=== PATIENT | male | born 1995 | race African-American/Black ===

== ENCOUNTER 2021-11-11 21:30 | Emergency (ER) | payer OTHER ==
[~2021-11-11] VITALS: Ht 188 cm; Wt 102.0 kg
[2021-11-11] MEDS ORDERED: IBUPROFEN 200 MG TABLET. PO ONE (23:45)
[2021-11-11] MEDS ORDERED: PENICILLIN V K 250 MG TABLET. PO ONE (23:45)
[2021-11-11] MEDS ORDERED: HYDROcodone/APAP 5/325MG 1 TAB TABLET PO ONE (23:45)
[2021-11-11] MEDS ORDERED: IBUP-1007 PO (23:47)
[2021-11-11] MEDS ORDERED: PENI500T PO (23:47)
--- NOTE | 2021-11-11 23:47 | PHYS DOC ---
General Adult EDM: Chief Complaint: DENTAL PROBLEM HPI: HPI: Patient is a 26-year-old male who presents to the emergency department complaining of left lower rear molar pain for the past 2 weeks. Patient reported mild pain 2 weeks ago that has progressively become worse rating a 10 out of 10 pain that he describes as throbbing. Patient reports he took 650 mg of Tylenol at 6:00 this evening with minimal relief in pain. Patient reports he has had a feeling in this tooth in the past for similar symptoms however has been greater than 10 years ago. Patient denies taking any other pain medications or trying another pain relief nonpharmacological methods. Patient denies numbness or tingling to his mouth or tongue, denies throat pain, denies recent fever or chills, denies difficulty swallowing, denies headaches, dizziness, visual changes. Denies nausea, vomiting, or diarrhea. Patient denies other physical complaints or physical concerns. Review of Systems: Review of Systems: 14 body systems of review of systems have been reviewed. See HPI for pertinent positives and negative responses, otherwise all other systems are negative, nonpertinent or noncontributory. Constitutional: Negative except as outlined in HPI above. Skin: Negative except as outlined in HPI above. Eyes: Negative except as outlined in HPI above. HENT: Negative except as outlined in HPI above. Respiratory: Negative except as outlined in HPI above. Cardiovascular: Negative except as outlined in HPI above. GI: Negative except as outlined in HPI above. : Negative except as outlined in HPI above. Musculoskeletal: Negative except as outlined in HPI above. Integument: Negative except as outlined in HPI above. Neurologic: Negative except as outlined in HPI above. Endocrine: Negative except as outlined in HPI above. Lymphatic: Negative except as outlined in HPI above. Psychiatric: Negative except as outlined in HPI above. Heart Score: C/O Chest Pain: No Risk Factors: Risk Factors: DM, Current or recent (<one month) smoker, HTN, HLP, family history of CAD, obesity. Risk Scores: Score 0 - 3: 2.5% MACE over next 6 weeks - Discharge Home Score 4 - 6: 20.3% MACE over next 6 weeks - Admit for Clinical Observation Score 7 - 10: 72.7% MACE over next 6 weeks - Early Invasive Strategies Physical Exam: PE: Constitutional: Well developed, well nourished, no acute distress, non-toxic appearance. 26-year-old male holding left jaw area with hand otherwise in no apparent distress. HENT: Normocephalic, atraumatic. Oropharynx moist, pink, no deep tissue infectious process appreciated, patient speaking in normal voice tones, no drooling, no trismus, marked dental caries, tooth #18 with decay, no purulent drainage appreciated, no bleeding. No lymphadenopathy of the head or neck appreciated. Eyes: Conjunctiva normal, no discharge. Neck: Normal range of motion, no stridor. Cardiovascular: No cyanosis appreciated, distal cap refill less than 2 seconds. Lungs & Thorax: Patient is in no respiratory distress, no audible adventitious lung sounds appreciated. Abdomen: Nontender, no abnormalities noted. Skin: Warm, dry, no erythema, no rash. Back: No tenderness, no deformities. Extremities: No tenderness, no cyanosis, no clubbing, ROM intact, no edema. Neurologic: Alert and oriented X 3, normal motor function, normal sensory f unction, no focal deficits noted. Psychologic: Affect normal, judgement normal, mood normal. EKG: EKG: [] Radiology/Procedures: Radiology/Procedures: [] Course & Med Decision Making: Course & Med Decision Making Pertinent Labs and Imaging studies reviewed. (See chart for details) 26-year-old male, vital signs reviewed, presents emergency room concerning dental pain. Physical examination reveals marked dental caries, there is no abscess or drainage appreciated, suspicious for underlying dental infection, discussed with patient need to follow-up with dentist soon, will give list of dentists on discharge instructions we will treat dentalgia with p.o. pain medic ation, Pen-V K regimen, discussed this with patient, patient is amenable to ED discharge planning. Discussed with the patient all findings and diagnostic testing as well as the need to follow-up with their primary care provider for further evaluation and treatment or return to the ED if any new or worsening symptoms. Strict return precautions were also discussed at length, the patient voiced understanding and agreement with the discharge planning. The patient was nontoxic in appearance, in no apparent distress, and hemodynamically stable at the time of disposition. Dragon Disclaimer: Dragon Disclaimer: This electronic medical record was generated, in whole or in part, using a voice recognition dictation system. Departure Departure Impression: Primary Impression: Dentalgia Additional Impressions: Dental infection Dental caries Disposition: HOME / SELF CARE / HOMELESS Condition: GOOD Referrals: NO PCP (PCP) Patient Instructions: Dental Caries, Dental Pain Additional Instructions: You were seen today in the emergency department for dental pain. As we discussed, I am starting you on antibiotic and pain medication, I am providing a list of dentists for you to follow-up with, please choose a dentist and see soon. Please take antibiotics as prescribed. You may use Tylenol or Motrin for ongoing dental discomfort. You may try using warm salt water swish and spits 2-3 times a day to aid in pain control. Return to the emergency department for worsening symptoms or other concerns. Thank you for visiting our Emergency Department. It was a pleasure taking care of you today in the emergency department and we appreciate you trusting us with your care. If any additional problems come up don't hesitate to return to visit us. Please follow up with your primary care provider so they can plan additional care if needed and know about the problem that you had. If symptoms worsen come back to the Emergency Department. Any concerning symptoms that start such as chest pain, shortness of air, weakness or numbness on one side of the body, running high fevers or any other concerning symptoms return to the ER. Scripts Ibuprofen (IBUPROFEN) 600 Mg Tablet 600 MG PO PRN Q6HRS PRN for INFLAMMATION, #30 TAB 0 Refills Prov: BRIAN IBRAHIM BUFFER CHROME 11/11/21 Penicillin V Potassium (PENICILLIN V POTASSIUM) 500 Mg Tablet 1 TAB PO QID for 14 Days, #56 TAB 0 Refills Prov: BRIAN IBRAHIM APRN 11/11/21 BRIAN IBRAHIM APRN Nov 11, 2021 23:47
== END 2021-11-11 23:43 | disposition home or self-care (01) ==
LOC: ER 21:30
DX: K04.7 Periapical abscess without sinus (principal); K02.9 Dental caries, unspecified
CPT/HCPCS: 99284